=== PATIENT | female | born 2000 | race Hispanic/Latino ===

== ENCOUNTER 2021-03-09 16:46 | Emergency (ER) | payer OTHER ==
--- OUTSIDE RECORDS SUMMARY | 2021-03-09 16:50 | XMS REPORT | Continuity of Care Document ---
:2000 Author Organization [facility] Address [address] [place] [address] [address]. [address] [place] [address] Care Team Providers Name Role Phone Unavailable Unavailable Unavailable Problems This patient has no known problems. Allergies, Adverse Reactions, Alerts This patient has no known allergies or adverse reactions. Medications This patient has no known medications. Procedures This patient has no known procedures. Results This patient has no known results.
[2021-03-09 17:55] LABS: Urine Blood Negative (Negative); Urine Glucose 2+ (Negative); Urine Protein Negative (Negative)
[2021-03-09 19:17] LABS: ALT/SGPT 21 U/L (12-78); AST/SGOT 10 U/L (15-37); Albumin 3.5 g/dL (3.4-5.0); Alkaline Phosphatase 69 U/L (45-117); BUN Blood Urea Nitrogen 10 mg/dL (7-18); Bicarbonate 27 mmol/L (21-32); Bilirubin Direct 0.1 mg/dL (0-0.2); Bilirubin Total 0.4 mg/dL (0.2-1.0); Glucose Level 250 mg/dL (74-106); Lipase 120 U/L (73-393); Potassium 4.4 mmol/L (3.5-5.1); Protein, Total 7.4 g/dL (6.4-8.2); Sodium Level 138 mmol/L (136-145)
[2021-03-09 19:20] LABS: Absolute Lymphocytes (CBC) 2.4 K/uL (0.7-4.9); Basophils % 0.6 % (0-1.3); Lymphocytes % 36.6 % (15.3-44.8); MPV 8.8 fL (7.6-11.3)
--- NOTE | 2021-03-09 19:50 | RAD REPORT ---
EXAM DESCRIPTION: CT - Abdomen Pelvis W Contrast - 03/09/2021 7:37 pm CLINICAL HISTORY: ABD PAIN COMPARISON: No comparisons TECHNIQUE: Biphasic, helical CT imaging of the abdomen and pelvis was performed following 100 ml non -ionic IV contrast. No oral contrast administered. All CT scans are performed using dose optimization technique as appropriate and may include automated exposure control or mA/KV adjustment according to patient size. FINDINGS: No suspicious findings in the lung bases. The liver, spleen, and pancreas show no suspicious findings. Gallbladder and biliary tree are also wi thout suspicious finding. Symmetric renal function is seen with no hydronephrosis or suspicious renal mass. No pyelonephritis o r acute parenchymal process. No bladder abnormalities. No adrenal abnormalities. No uterine abnormali ty seen. A 13 millimeter involuting left ovarian cyst is present. No suspicious right ovarian finding . No dilated bowel loops or bowel wall thickening. Appendix is normal. Physiologic quantity of free flu id seen in the cul de sac and adnexa. No free air or pneumatosis. No hernia, mass or bulky lymphaden opathy. No suspicious bony findings. IMPRESSION: Contrast enhanced CT abdomen and pelvis showing no acute or emergent finding.
--- NOTE | 2021-03-09 20:10 | EDPHYS ---
Physician Documentation [facility] Name: Rober Ramey Age: 20 yrs Sex: Female : 2000 Arrival Date: 03/09/2021 Time: 16:52 Bed 6 Private MD: ED Physician Genaro Bishop HPI: 03/09 20:08 This 20 yrs old Female presents to ER via Ambulatory with complaints of Low kb Back Pain, Abdominal Pain. 20:08 The patient presents with abdominal pain in the left upper quadrant, in the left lower kb quadrant. The patient has not recently seen a physician. 20:08 Onset: The symptoms/episode began/occurred 6 day(s) ago. The symptoms do not radiate. kb Associated signs and symptoms: Pertinent positives: constipation, Pertinent negatives: fever. The symptoms are described as constant. Modifying factors: The symptoms are alleviated by nothing, the symptoms are aggravated by nothing. Severity of pain: At its worst the pain was mild moderate in the emergency department the pain is unchanged. The patient has not experienced similar symptoms in the past. Pt reports lower abd pain, lower back pain and constipation for 6 days. Denies urinary symptoms . Historical: - Allergies: 17:28 No Known Allergies; kg - Home Meds: 17:28 Levemir FlexTouch U-100 Insuln 100 unit/mL (3 mL) subcutaneous inpn [Active]; Novolin R kg Sub-Q [Active]; - PMHx: 17:28 IDDM- type 1; kg - PSHx: 17:28 None; kg - Immunization history:: Adult Immunizations up to date, Client reports having NOT received the Covid vaccine. - Social history:: Smoking status: Patient reports the use of cigarette tobacco products, denies chronic smoking, but will smoke occasionally, Patient uses alcohol, weekly. ROS: 19:38 Constitutional: Negative for fever, chills, and weight loss. kb 19:38 Abdomen/GI: Positive for abdominal pain, constipation. 19:38 Back: Positive for pain at rest, pain with movement, of the low back area. 19:38 All other systems are negative. Exam: 20:07 Constitutional: This is a well developed, well nourished patient who is awake, alert, kb and in no acute distress. Head/Face: Normocephalic, atraumatic. ENT: Moist Mucous membranes Respiratory: Respirations even and unlabored. No increased work of breathing, no retractions or nasal flaring. Skin: Warm, dry with normal turgor. Normal color. MS/ Extremity: Pulses equal, no cyanosis. Neurovascular intact. Full, normal range of motion. Neuro: Awake and alert, GCS 15, oriented to person, place, time, and situation. Moves all extremities. Normal gait. Psych: Awake, alert, with orientation to person, place and time. Behavior, mood, and affect are within normal limits. 20:07 Abdomen/GI: Inspection: abdomen appears normal, Bowel sounds: normal, Palpation: soft, in all quadrants, mild abdominal tenderness, in the left upper quadrant, moderate abdominal tenderness, in the left lower quadrant. Vital Signs: 17:26 BP 124 / 65; Pulse 62; Resp 18; Temp 98.3(TE); Pulse Ox 100% ; Weight 65.77 kg (R); kg Height 5 ft. 3 in. (160.02 cm) (R); Pain 7/10; 17:26 Body Mass Index 25.69 (65.77 kg, 160.02 cm) kg MDM: 18:28 Patient medically screened. kb 19:38 Data reviewed: vital signs, nurses notes. Data interpreted: Pulse oximetry: on room air kb is 100 %. Interpretation: normal. 20:07 Counseling: I had a detailed discussion with the patient and/or guardian regarding: the kb historical points, exam findings, and any diagnostic results supporting the discharge/admit diagnosis, lab results, radiology results, the need for outpatient follow up, a family practitioner, to return to the emergency department if symptoms worsen or persist or if there are any questions or concerns that arise at home. 20:07 Differential diagnosis: UTI, constipation, diverticulitis, colitis. kb 03/09 17:54 Order name: Urine Dipstick-Ancillary; Complete Time: 18:01 EDMS 03/09 18:01 Order name: Urine --Ancillary (enter results) bd 03/09 18:29 Order name: Basic Metabolic Panel kb 03/09 18:29 Order name: CBC with Diff; Complete Time: 19:27 kb 03/09 18:29 Order name: Hepatic Function; Complete Time: 19:20 kb 03/09 17:30 Order name: Urine Dipstick-Ancillary (obtain specimen); Complete Time: 18:57 kb 03/09 17:30 Order name: Urine Test (obtain specimen); Complete Time: 19:06 kb 03/09 18:29 Order name: Lipase; Complete Time: 19:20 kb 03/09 18:29 Order name: IV Saline Lock; Complete Time: 18:53 kb 03/09 18:29 Order name: Labs collected and sent; Complete Time: 18:53 kb 03/09 18:30 Order name: Basic Metabolic Panel; Complete Time: 19:20 EDNY 03/09 18:51 Order name: CT Abd/Pelvis - IV Contrast Only; Complete Time: 20:06 kb Administered Medications: 19:06 Drug: NS 0.9% 1000 ml Route: IV; Rate: 1000 ml; Site: left antecubital; ap3 20:36 Follow up: IV Status: Completed infusion; IV Intake: 1000ml em Disposition Summary: 03/09/21 20:10 Discharge Ordered Location: Home kb Condition: Stable kb Diagnosis - Lower abdominal pain, unspecified kb - Hyperglycemia, unspecified kb Followup: kb - With: Emergency Department - When: As needed - Reason: Worsening of condition Followup: kb - With: Private Physician - When: 2 - 3 days - Reason: Recheck today's complaints, Continuance of care, Re-evaluation by your physician Discharge Instructions: - Discharge Summary Sheet kb - Abdominal Pain, Adult, [id number] kb - Hyperglycemia, [id number] kb Forms: - Medication Reconciliation Form kb - Thank You Letter kb - Antibiotic Education kb - Prescription Opioid Use kb Addendum: 03/11/2021 07:07 Co-signature as Attending Physician, Genaro Bishop MD. r n 07:08 I agree with the assessment and plan of care. Attestation: The patient's history, exam r n findings, diagnostics, and a summary of any interventions or procedures was reviewed in detail with Ingrid DE GUZMAN. Signatures: Dispatcher [employer] Ingrid Siddiqui FNP-C FNP-Ckb Nieto, Roman, MD MD rn Prokisch, Amanda RN RN ap3 Amara Londono RN RN kg Giorgio Molina RN em
--- NOTE | 2021-03-09 20:10 | ER ---
Nurse's Notes [facility] Name: Rober Ramey Age: 20 yrs Sex: Female : 2000 Arrival Date: 03/09/2021 Time: 16:52 Bed 6 Private MD: Diagnosis: Lower abdominal pain, unspecified;Hyperglycemia, unspecified Presentation: 03/09 17:26 Chief complaint: Patient states: Back pain, lower abdominal pain, constipation, kg frequency and urgency with urination x 6 days. Coronavirus screen: Vaccine status: Patient reports being unvaccinated. Ebola Screen: Patient negative for fever greater than or equal to 101.5 degrees Fahrenheit, and additional compatible Ebola Virus Disease symptoms Patient denies exposure to infectious person. Patient denies travel to an Ebola-affected area in the 21 days before illness onset. Initial Sepsis Screen: Does the patient meet any 2 criteria? No. Patient's initial sepsis screen is negative. Does the patient have a suspected source of infection? No. Patient's initial sepsis screen is negative. Risk Assessment: Do you want to hurt yourself or someone else? Patient reports no desire to harm self or others. Onset of symptoms was March 04, 2021. 17:26 Method Of Arrival: Ambulatory kg 17:26 Acuity: SAMUEL 4 kg Triage Assessment: 17:28 General: Appears in no apparent distress. Behavior is calm, cooperative, appropriate kg for age, quiet. Pain: Complains of pain in left low back and right low back Pain radiates to suprapubic area, right lower quadrant and left lower quadrant Pain currently is 7 out of 10 on a pain scale. Quality of pain is described as aching. GI: Reports constipation. GI: Reports bloating, gaseousness. : Reports inability to void, urgency, urinary frequency. Historical: - Allergies: 17:28 No Known Allergies; kg - Home Meds: 17:28 Levemir FlexTouch U-100 Insuln 100 unit/mL (3 mL) subcutaneous inpn [Active]; Novolin R kg Sub-Q [Active]; - PMHx: 17:28 IDDM- type 1; kg - PSHx: 17:28 None; kg - Immunization history:: Adult Immunizations up to date, Client reports having NOT received the Covid vaccine. - Social history:: Smoking status: Patient reports the use of cigarette tobacco products, denies chronic smoking, but will smoke occasionally, Patient uses alcohol, weekly. Screenin:30 Abuse screen: Denies threats or abuse. Denies injuries from another. Nutritional kg screening: No deficits noted. Tuberculosis screening: No symptoms or risk factors identified. Fall Risk None identified. Assessment: 18:54 General: Appears in no apparent distress. distressed, Behavior is calm, cooperative, ap3 appropriate for age. Pain: Complains of pain in low back area and right low back. Neuro: Level of Consciousness is awake, alert, obeys commands, Oriented to person, place, time, situation, Appropriate for age. Cardiovascular: Denies chest pain, shortness of breath, Capillary refill < 3 seconds. Respiratory: Airway is patent Respiratory effort is even, unlabored, Respiratory pattern is regular, symmetrical. GI: Bowel sounds present X 4 quads. Abd is soft X 4 quads Abdomen is tender to palpation in right lower quadrant and left lower quadrant. : No signs and/or symptoms were reported regarding the genitourinary system. EENT: No signs and/or symptoms were reported regarding the EENT system. 19:45 Reassessment: Patient appears in no apparent distress at this time. Patient and/or em family updated on plan of care and expected duration. Pain level reassessed. Patient is alert, oriented x 3, equal unlabored respirations, skin warm/dry/pink. Vital Signs: 17:26 BP 124 / 65; Pulse 62; Resp 18; Temp 98.3(TE); Pulse Ox 100% ; Weight 65.77 kg (R); kg Height 5 ft. 3 in. (160.02 cm) (R); Pain 7/10; 17:26 Body Mass Index 25.69 (65.77 kg, 160.02 cm) kg ED Course: 16:52 Patient arrived in ED. as 17:28 Triage completed. kg 17:30 Ingrid Pittman FNP-C [facility]. kb 17:30 Genaro Bishop MD is Attending Physician. kb 17:30 Patient has correct armband on for positive identification. kg 18:36 Anni Somers RN is Primary Nurse. ap3 18:54 Inserted saline lock: 20 gauge in left antecubital area, using aseptic technique. Blood ap3 collected. 18:56 Arm band placed on right wrist. ap3 19:15 Primary Nurse role handed off by Anni Somers, RN mw2 19:27 Giorgio Molina, RN is Primary Nurse. em 19:37 CT Abd/Pelvis - IV Contrast Only In Process Unspecified. EDMS 20:41 No provider procedures requiring assistance completed. IV discontinued, intact, em bleeding controlled, No redness/swelling at site. Pressure dressing applied. Administered Medications: 19:06 Drug: NS 0.9% 1000 ml Route: IV; Rate: 1000 ml; Site: left antecubital; ap3 20:36 Follow up: IV Status: Completed infusion; IV Intake: 1000ml em Intake: 20:36 IV: 1000ml; Total: 1000ml. em Outcome: 20:10 Discharge ordered by . kb 20:41 Discharged to home ambulatory. em 20:41 Condition: stable 20:41 Discharge instructions given to patient, Instructed on discharge instructions, follow up and referral plans. Demonstrated understanding of instructions, follow-up care. 20:42 Patient left the ED. em Signatures: Dispatcher [employer] EDDE Ingrid Pittman, WEBBING TACKER-C WEBBING TACKER-Ckb Giorgio Molina, RN RN em Em Alvares as Anni Somers, RN RN ap3 Lucrecia Genao mw2 Amara Londono, RN RN kg
[2021-03-09 21:10] VITALS: BP 124/65; TEMP 98.3; O2SAT 100
== END 2021-03-09 20:42 | disposition home or self-care (01) ==
LOC: ER 16:46
DX: E10.65 Type 1 diabetes mellitus with hyperglycemia (principal); Z79.4 Long term (current) use of insulin; F17.210 Nicotine dependence, cigarettes, uncomplicated
CPT/HCPCS: 85025; 80048; 36415; 81025; 80076; 81003; 83690; 74177; 96360; 99284; Q9967